=== PATIENT | female | born 1985 | race Caucasian/White ===

== ENCOUNTER 2021-11-04 19:18 | Emergency (ER) | payer SELFPAY ==
[~2021-11-04] VITALS: Ht 152.4 cm; Wt 69.5 kg
[2021-11-04 19:37] VITALS: BP 115/69
--- NOTE | 2021-11-04 19:44 | NUR ---
PT TAKEN TO LOBBY.
--- NOTE | 2021-11-04 20:09 | NUR ---
PT AMBULATED TO BED #4
--- NOTE | 2021-11-04 20:14 | NUR ---
ER AT BEDSIDE
--- NOTE | 2021-11-04 20:24 | NUR ---
36 Y/O FEMALE BIBS FROM HOME, C/O ABD PAIN X10 DAYS. PATIENT PRESENTS TO ED WITH +N/V. PT STATES SHE MISSED HER PERIOD IN AUGUST, THINKS SHE MAYBE . REPORTS BILAT ARM NUMBNESS [id number], DENIES ALL OTHER STROKE SYMPTOMS. DENIES DIARRHEA OR BLOOD IN HER URINE; SKIN IS PINK/WARM/DRY; AAOX4 WITH EVEN AND STEADY GAIT; LUNGS CLEAR BL; HR EVEN AND REGULAR; PT DENIES ANY FEVER, CP, SOB, OR COUGH AT THIS TIME; PATIENT STATES PAIN OF 10/10 AT THIS TIME; VSS; PATIENT POSITIONED FOR COMFORT; HOB ELEVATED; BEDRAILS UP X2; BED DOWN. ER MD MADE AWARE OF PT STATUS. DENIES HX, RX AND ALLERGIES
[2021-11-04 20:49] VITALS: BP 115/69
--- NOTE | 2021-11-04 20:55 | NUR ---
Patient discharged with v/s stable. Written and verbal after care instructions given and explained. Patient verbalized understanding. Ambulatory with steady gait. All questions addressed prior to discharge. Advised to follow up with PMD. A/OX4, VSS, UNLABORED BREATHING, AMBULATORY, AND CALM DEMEANOR. RESOURCES FOR PCP AND OBGYN GIVEN TO PT.
== END 2021-11-04 20:49 | disposition home or self-care (01) ==
LOC: MED 19:18
DX: O26.891 Other specified pregnancy related conditions, first trimester (principal); R10.30 Lower abdominal pain, unspecified; R11.0 Nausea; Z3A.01 Less than 8 weeks gestation of pregnancy
CPT/HCPCS: 81025; 99282